=== PATIENT | female | born 1980 | race African-American/Black ===

== ENCOUNTER 2023-08-09 05:01 | Observation (INO) | payer SELFPAY ==
[2023-08-09] VITALS (10 sets, daily range): BP systolic 134–198; BP diastolic 73–94; PULSE 64–94; RESP 14–25; TEMP 36.3–38.3; O2SAT 97–100; BMI 42.7
--- NOTE | ~2023-08-09 | CT_ITS ---
EXAMINATION: CT brain wo con DATE: 08/09/2023 12:55 INDICATION: New onset of seizure TECHNIQUE: Computed tomography (CT) of the head was performed without intravenous contrast. The dose- length product was 605.33 mGy-cm. Automated exposure control and iterative reconstruction technique w ere employed. COMPARISON: None FINDINGS: Brain parenchymal volume is normal. No acute intracranial hemorrhage, infarction, mass or m ass effect. Study limited by motion. No ventriculomegaly or midline shift. No acute intracranial hemo rrhage, infarction, mass or mass effect. Midline sagittal images are unremarkable. Paranasal sinuses and mastoids are pneumatized. No depressed skull fractures. IMPRESSION: 1. No acute intracranial abnormality. Reviewed, dictated and finalized at location B. INE SET UP
--- NOTE | ~2023-08-09 | CT_ITS ---
CT of the Abdomen and Pelvis: Indication: Pancreatitis Technique: 2.5 mm axial scans were obtained through the abdomen and pelvis following intravenous adm inistration of 100 cc of Omnipaque 350. Dose reduction technique was used on this scan by utilizing a utomated exposure control and iterative reconstruction technique. The dose-length product (DLP) was 1 379.54 mGy-cm. Findings: Scans through the lung bases are unremarkable. The liver, spleen, pancreas, gallbladder, adrenals and kidneys are within normal limits. No evidence of aortic aneurysm. No lymphadenopathy. No bowel obstruction or bowel wall thickening. There is no evidence to suggest acute appendicitis. Images through the pelvis were performed. Urinary bladder unremarkable. No pelvic mass seen. No ascit es. Impression: No significant abnormalities seen. Reviewed, dictated and finalized at location . CIATE PROFESSOR OF GEOLOGY Impression: No significant abnormalities seen.
[2023-08-09 05:16] LABS: Basophils Percent Auto 0.4 % (0.2-1.2); Hematocrit 42.1 % (37.0-47.0); Hemoglobin 13.3 g/dL (12.0-15.0); Immature Granulocyte Absolute 0.03 K/mm3 (0.00-0.031); Immature Granulocyte Percent A 0.4 % (0-0.5); Lymphocytes Absolute Auto 1.53 K/mm3 (0.9-3.2); Lymphocytes Percent Auto 19.5 % (18.3-44.2); Mean Corpuscular HGB Conc 31.6 g/dl (32-36); Mean Corpuscular Hemoglobin 24.4 pg (26-34); Mean Corpuscular Volume 77.1 fl (80-100); Mean Platelet Volume 11.9 fl (7.4-10.4); Monocytes Absolute Auto 0.6 K/mm3 (0.1-0.6); Monocytes Percent Auto 7.4 % (2.6-8.5); Neutrophils Absolute Auto 5.7 K/mm3 (1.3-6.7); Neutrophils Percent Auto 72.3 % (45.5-73.1); Platelet Count Result 243 k/mm3 (150-375); Red Blood Count 5.46 M/mm3 (4.2-5.4); Red Cell Distribution Width 13.6 % (11.5-14.5); White Blood Count 7.9 K/mm3 (4.5-10.0)
[2023-08-09 05:30] LABS: Alanine Aminotransferase 20 U/L (6-35); Albumin Level 4.1 g/dL (3.5-5.1); Alkaline Phosphatase 79 U/L (38-126); Anion Gap 11 mmol/L (8-16); Aspartate Amino Transferase 18 U/L (14-36); Bilirubin,Total 0.7 mg/dL (0.2-1.3); Blood Urea Nitrogen 6 mg/dL (7-17); Calcium 9.6 mg/dL (8.4-10.2); Carbon Dioxide 25 mmol/L (22-30); Chloride 102 mmol/L (98-107); Estimated CRCL calculation 124 ml/min; Estimated Glomerular Filt Rate > 60; Glucose 366 mg/dL (65-110); Lipase 593 U/L (23-300); Potassium 3.5 mmol/L (3.4-5.0); Sodium 138 mmol/L (137-145)
--- NOTE | 2023-08-09 05:45 | PC.NURSE ---
Pt walked out into the hallway holding her IV bag and asked for pain medicine. This RN took pt back to room, pt disclosed that she needed to admit something. Pt then stated I've been dealing with a lot of stress, my sister in January, and I have been doing heroin since she passed This RN asked the pt if she was having thoughts of hurting herself and the pt replied I just want to be with my sister Pt also stated I want to , I want to made aware, suicide precautions put in place. Sitter at bedside.
--- NOTE | 2023-08-09 06:05 | ECG_ITS ---
Measurements Intervals [place] Rate: 68 P: 50 SC: 175 QRS: 17 QRSD: 86 T: 10 QT: 379 QTc: 405 Interpretive Statements SINUS RHYTHM NONSPECIFIC T-WAVE FLATTENING BORDERLINE ECG NO PREVIOUS ECG AVAILABLE FOR COMPARISON Electronically Signed On 08-09-2023 13:25:32 PERFORMANCE TEST ARCHITECT by Oscar Narvaez M.D.
[2023-08-09 06:16] LABS: Appearance Urine Cloudy (Clear); Bacteria Urine 3+ /hpf; Bilirubin Urine Negative (Negative); Blood Urine Negative (Negative); Budding Yeast Urine Present /hpf; Color Urine Yellow (Yellow); Glucose Urine UA 3+ mg/dL (Negative); Ketones Urine 1+ mg/dL (Negative); Leukocyte Esterase Ur 1+ LEU/UL (Negative); Need Manual Microscopic Reviewed; Nitrate Urine Negative (Negative); Non Pathogenic Casts 0-2; Protein Urine Negative (Negative); Specific Grav Ur 1.026 (1.001-1.035); Squamous Epithelial Cell Urine None seen /hpf (Few); WBC Urine 21-50 /hpf; pH Urine 6.5 (5.0-9.0)
[2023-08-09 06:17] LABS: Add Urine Microscopic? YES
[2023-08-09 06:36] LABS: Influenza A QL RT-PCR Negative (Negative); Influenza B QL RT-PCR Negative (Negative); RSV RNA, RT-PCR Negative (Negative); SARS-CoV-2 RNA PCR Negative (Negative)
--- NOTE | 2023-08-09 06:43 | PC.NURSE ---
Patient attempted to elope to catch air and get out of here . Patient stopped by this RN and security called. Patient informed that the physician will be in to speak with her soon. Assisted back into bed.
--- NOTE | 2023-08-09 07:06 | PC.NURSE ---
Patient attempting to elope. Security and tech redirecting patient back to room. Patient informed that if she eloped we would have to call [facility] and they would bring her back to our facility. Patient stated, fuck you and raised her middle finger to this RN.
[2023-08-09] MEDS: LACTATED RINGERS 1,000 ML 999 ML IV CONT (07:35)
[2023-08-09] MEDS: ONDANSETRON INJ 4 MG/2 ML VIAL IV PUSH (07:45)
--- NOTE | 2023-08-09 07:52 | PC.NURSE ---
Pt with current nausea/heaving, fluids infusing, gave meds per MAR. Pt complaining of abdominal and back pain, MD aware. animal tech made aware of IV fluids/tubing in room and infusing. Pt updated on POC. Pt reports feeling depressed and having suicidal thoughts since her sister in January of this year. States she has never seen a psychiatrist or been treated for depression in the past.
--- NOTE | 2023-08-09 08:09 | ED.ABDPAIN ---
HPI - Abdominal Pain General Chief Complaint: Psychiatric Symptoms Stated Complaint: abd pain, nausea, vomiting Time Seen by Provider: 08/09/23 07:01 History of Present Illness HPI narrative: Patient states around 3 this morning she started having severe epigastric abdominal pain that went to her back, and nausea and vomiting, she cannot stop throwing has not had symptoms like this before, does not drink alcohol, no chest pain. To me she denied SI/HI; however she had told someone that her sister yesterday and she planned on killing herself upon discharge. Related Data Allergies Allergy/AdvReac Type Severity Reaction Status Date / Time Penicillins Allergy Diarrhea Verified 08/09/23 05:06 Review of Systems Review of Systems: CONST: No fever. HEENT: No sore throat C/V: Chest pain RESP: No cough GI: Reports abdominal pain, nausea, vomiting : No dysuria. M/S: Muscle pain SKIN: No rash. NEURO: [Headache without focal numbness or weakness] PSYCH: Depression [facility] Social History Social History Substance use type: heroin Exam Narrative: EXAMINATION OF ORGAN SYSTEMS/BODY AREAS: Constitutional: Vital signs per nursing GENERAL: Moving around the bed, retching HEAD: Normal with no signs of head trauma. EYES: EOMI, conjunctiva normal ENT: Hearing grossly intact LUNGS: Nonlabored breathing. HEART: [Regular rate and rhythm], normal pulses bilaterally radial and DP ABD: [Soft], tender to palpation diffusely EXT: Normal range of motion SKIN: [No rashes or lesions.] NEURO: [Alert and oriented x 3. No gross focal sensory or strength deficits.] PSYCH: Flat affect Course Vital Signs Vital signs: Vital Signs Temperature 97.3 F L 08/09/23 04:57 Pulse Rate 64 08/09/23 04:57 Respiratory Rate 15 08/09/23 04:57 Blood Pressure 164/94 H 08/09/23 04:57 Pulse Oximetry 100 08/09/23 04:57 Oxygen Delivery Room Air 08/09/23 04:57 Temperature 97.7 F 08/09/23 06:21 Pulse Rate 71 08/09/23 06:21 Respiratory Rate 16 08/09/23 06:21 Blood Pressure 198/84 H 08/09/23 06:21 Pulse Oximetry 100 08/09/23 06:21 Oxygen Delivery Room Air 08/09/23 04:57 MDM - Abdominal Pain MDM Narrative Medical decision making narrative: The patient presents here for psychiatric evaluation due to verbal threats of suicide, she is also reporting severe abdominal pain, nausea vomiting since this morning, per overnight reports suspected heroin use, per patient she does use morphine for chronic back pain. On evaluation she is throwing up appears quite uncomfortable, I did order antiemetics and pain medication, labs concerning for UTI and elevated lipase, CT abdomen/pelvis and thus obtained which is thankfully normal. I did re-evaluate the patient, she is now describing pain everywhere, this makes me less suspicious for an acute surgical abnormality including dissection without focalized pain or neurovascular deficits, since she is still throwing up despite multiple rounds of antiemetics I am concerned for possible withdrawal, I do not think she is medically stable for transfer to psychiatric facility at this time. Discussed with hospitalist Dr Livingston for admission. Lab Data 08/09/23 05:08 08/09/23 05:08 Labs: Lab Results 08/09/23 08/09/23 Range/Units 05:08 05:51 WBC 7.9 (4.5-10.0) K/mm3 RBC 5.46 H (4.2-5.4) M/mm3 Hgb 13.3 (12.0-15.0) g/dL Hct 42.1 (37.0-47.0) % MCV 77.1 L (80-100) fl MCH 24.4 L (26-34) pg MCHC 31.6 L (32-36) g/dl RDW 13.6 (11.5-14.5) % Plt Count 243 (150-375) k/mm3 MPV 11.9 H (7.4-10.4) fl Immature Gran % (Auto) 0.4 (0-0.5) % Neut % (Auto) 72.3 (45.5-73.1) % Lymph % (Auto) 19.5 (18.3-44.2) % Rhea % (Auto) 7.4 (2.6-8.5) % Eos % (Auto) 0.0 (0-4.4) % Baso % (Auto) 0.4 (0.2-1.2) % Lymph # (Auto) 1.53 (0.9-3.2) K/mm3 Rhea # (Auto) 0.6 (0.1-0.6) K/mm3 Eos # (Auto) 0.0 (0
[2023-08-09] MEDS: MORPHINE SULFATE (*CRX) 4 MG/ML INJ IV PUSH (08:18)
[2023-08-09] MEDS: METOCLOPRAMIDE HCL INJ 10 MG/2 ML VIAL IV PUSH (08:20)
[2023-08-09] MEDS: diphenhydrAMINE HCl INJ 50 MG/ML VIAL 25 MG IV PUSH (08:20)
[2023-08-09 08:34] LABS: Amphetamine Screen Urine Negative (Negative); Barbiturate Screen Urine Negative (Negative); Benzodiazepines Screen Urine Negative (Negative); Cannabinoid Screen Urine Negative (Negative); Cocaine Screen Urine Negative (Negative); Methadone Screen Urine Negative (Negative); Opiate Screen Urine Negative (Negative); Phencyclidine Screen Urine Negative (Negative)
[2023-08-09 09:24] LABS: Acetaminophen < 10 ug/mL (10-30); Ethanol < 10 mg/dL (<10); Salicylate < 1.0 mg/dL (2-20)
[2023-08-09] MEDS: LORazepam INJ (*CRX) 2 MG/ML VIAL 1 MG IM (12:05)
--- NOTE | 2023-08-09 12:10 | PC.NURSE ---
RN called to bedside, pt appeared to be having seizure like activity with rhythmic movement and drooling, MD also called to bedside. Pt woke up and was alert and answering questions appropriately right away. VS as documented. Pt placed on cardiac care unit nurse and medicated. Pt's IV was found in the sink, new IV started.
[2023-08-09] MEDS: LACTATED RINGERS 1,000 ML 125 ML IV CONT ×2 (12:24→23:44)
[2023-08-09] MEDS: KETOROLAC 15 MG/ML VIAL (*BKC) IV PUSH (12:29)
[2023-08-09] MEDS: cloNIDine HCL 0.1 MG TABLET PO (12:30)
[2023-08-09 13:38] LABS: Hemoglobin A1C > 14.0 % (<5.7)
--- NOTE | 2023-08-09 14:57 | PM.IMHP ---
H&P: HPI History of Present Illness Date/Time: 08/09/23 14:57 Chief Complaint: Abdominal Pain, Suicidal Ideation Narrative: 43 y/o F presents here with epigastric pain, N/V, and SI with PMH of DM and heroin use. Patient reports that at 3:00 a.m. last night (08/09) she began experiencing epigastric pain accompanied by nausea and vomiting. States that she felt feverish. Reported to ED provider that the a epigastric pain radiated into her back. Not accompanied by chest pain or shortness of breath. No prior history of similar presentation. +Urinary frequency, dysuria, and odor. Denied hematuria. ED workup revealed UA suspicious for UTI, hyperglycemia, and elevated lipase. CT of abdomen/pelvis was unremarkable. During workup, family reported that patient had been making suicidal statements lately, most recent last night. Denied SI/HI to ED provider, did endorse to me that she had made those statements to her mother. No plan or access to firearms. Reports that these thoughts started after her sister unexpectedly in January. Complicated by current substance use. Patient reports that she snorts heroin a minimum of 2 times per week to a max of once daily. Last use 2 days ago. She reports interest in getting clean. Patient reports following with her PCP (Mira Bartlett in [facility]) for her diabetes. currently on Trulicity 1.5 once weekly. Reported compliance with last PCP visit a few months ago. no other complaints at this time. Review of Systems Review of Systems: All systems reviewed & are unremarkable except as noted in HPI and below PMFSH Past Medical History Medical History (Updated 08/09/23 @ 20:06 by Izabela Recinos APRN) DM2 (diabetes mellitus, type 2) Heroin use twice weekly - once daily, as of 08/09/23 Surgical History Surgical History (Updated 08/09/23 @ 18:26 by Izabela Recinos APRN) History of bilateral breast reduction surgery Family History Family History (Updated 08/09/23 @ 17:23 by Harmony Prieto RN) Other Unknown family medical history Social History Social History (Updated 08/09/23 @ 18:26 by Izabela Recinos APRN) Social History: Currently living with her niece. Elects Matilde Anaya, mother, as her surrogate decision maker. Code status: Full Code. Smoking status: Former smoker Alcohol intake: former Substance use: former Substance use type: heroin Lack of Transportation: No Lack of Food: Sometimes True Current Housing: Decline to Answer Concerned About Future Housing: Decline to Answer Difficulty Paying Gas/Electric Bills: Decline to Answer Difficulty Paying for Meds: Decline to Answer Currently Unemployed: Decline to Answer Education: Decline to Answer Difficulty w/ Childcare or Family Care: Decline to Answer Spiritual care concerns: No Meds Home Medications and Allergies Home Medications Medication Instructions Recorded Confirmed Type clonidine HCl 0.1 mg tablet 0.1 mg PO DAILY 08/09/23 08/09/23 History dulaglutide 3 mg/0.5 mL 3 mg subcut WEEKLY 08/09/23 08/09/23 History subcutaneous pen injector (Trulicity) Allergies Allergy/AdvReac Type Severity Reaction Status Date / Time Penicillins Allergy Diarrhea Verified 08/09/23 05:06 Vital Signs Vital Signs - 24 hr 08/09/23 04:57 08/09/23 06:21 08/09/23 09:50 Temperature 97.3 F L 97.7 F Pulse Rate 64 71 71 Respiratory Rate 15 16 16 Blood Pressure 164/94 H 198/84 H 169/81 H Pulse Oximetry 100 100 100 Oxygen Delivery Room Air 08/09/23 12:10 Temperature Pulse Rate 76 Respiratory Rate 14 Blood Pressure 134/73 Pulse Oximetry 99 Oxygen Delivery Exam Narrative: Resting in ED stretcher. Const: General: comfortable and no acute distress Other: Mild somnolence. HENMT: Face/Nose/Sinus: Normal nares present Mouth: Yes moist mucous membranes Eyes: General: appearance normal, both eyes and all related structures Sclera: sclerae norm
--- NOTE | 2023-08-09 16:07 | PC.NURSE ---
ALL BELONGINGS SENT WITH PT'S MOTHER, REINIER, PER PATIENT REQUEST Reinier: [phone]
--- NOTE | 2023-08-09 16:17 | ADMGEN ---
This patient, Sia Anaya, was admitted to Intensive Care Unit-4. Patient/family oriented to hospital policies and general routines including ID bracelet, bed and alarms, visiting hours, pain management, procedures, bathroom and other care routines, personal items, smoking policy, room service/diet, and visiting hours. Information on how to activate the Rapid Response Team has been discussed. Patient/Family are encouraged to report perceived risks to care and to ask questions if they do not understand what they are told or what they should do.
[2023-08-09] MEDS: INSULIN ASPART (*BKC) 100 UNITS/ML SUB-Q ×2 (17:05→20:29)
[2023-08-09 17:08] LABS: Glucose Point of Care 371 mg/dl (65-105)
[2023-08-09] MEDS: HALOPERIDOL LACTATE 5 MG/ML VIAL 2 MG IV PUSH (18:21)
[2023-08-09] MEDS: MORPHINE SULFATE (*CRX) 2 MG/ML INJ IV PUSH ×2 (18:22→23:44)
[2023-08-09 19:14] LABS: Base Excess ABG 0.5 mEq/l (+/-2.0); Fractional Inspired Oxygen 21 %; HCO3 ABG 23.2 mEq/l (22.0-26.0); Oxygen Content ABG 18.3 %vol (16.0-22.0); Oxygen Saturation ABG 96.4 % (95.0-100.0); Oxyhemoglobin 94.8 % THb (90.0-100.0); PCO2 ABG 31.7 mmHg (35.0-45.0); PO2 ABG 77.8 mmHg (80.0-100.0); Total Hemoglobin 13.7 g/dL (12.0-18.0); pH ABG 7.482 (7.350-7.450)
[2023-08-09 19:15] LABS: Device ROOM AIR; Modified Allen's Test Pass; Site Drawn LEFT RADIAL
[2023-08-09 19:31] LABS: Cholesterol 210 mg/dL (0-200); HDL Direct 41 mg/dL; Triglycerides 92 mg/dL (<150)
[2023-08-09 19:42] LABS: LDL Cholesterol Direct 127 mg/dL
[2023-08-09 20:27] LABS: Glucose Point of Care 269 mg/dl (65-105)
[2023-08-09] MEDS: HYDROcodone/acetaminophen (*CRX) 5-325 MG TABLET 1 TAB PO (20:48)
[2023-08-10] VITALS (14 sets, daily range): BP systolic 155–191; BP diastolic 76–97; PULSE 56–80; RESP 17–26; TEMP 36.5–36.9; O2SAT 98–100
--- NOTE | 2023-08-10 00:30 | PC.NURSE ---
This RN called to bedside by patient sitter. Patient will not open her eyes to verbal commands. Patient opens her eyes to deep pain and squeezed his RNs hands. Izabela LEIVA called to bedside to evaluate patient.
[2023-08-10] MEDS: ONDANSETRON INJ 4 MG/2 ML VIAL IV PUSH ×2 (00:43→17:30)
[2023-08-10] MEDS: diphenhydrAMINE HCl INJ 50 MG/ML VIAL 25 MG IV PUSH (01:15)
--- NOTE | 2023-08-10 01:15 | PC.NURSE ---
While attempting to give IVP benadryl, patient intentionally leaned over the siderail and spit on the floor.
[2023-08-10] MEDS: cloNIDine HCL 0.1 MG TABLET PO (03:58)
[2023-08-10] MEDS: LORazepam INJ (*CRX) 2 MG/ML VIAL 1 MG IV PUSH (04:00)
[2023-08-10 04:25] LABS: Basophils Percent Auto 0.2 % (0.2-1.2); Hematocrit 39.1 % (37.0-47.0); Hemoglobin 12.6 g/dL (12.0-15.0); Immature Granulocyte Absolute 0.02 K/mm3 (0.00-0.031); Immature Granulocyte Percent A 0.2 % (0-0.5); Lymphocytes Absolute Auto 1.22 K/mm3 (0.9-3.2); Mean Corpuscular HGB Conc 32.2 g/dl (32-36); Mean Corpuscular Hemoglobin 24.5 pg (26-34); Mean Corpuscular Volume 75.9 fl (80-100); Monocytes Absolute Auto 0.7 K/mm3 (0.1-0.6); Neutrophils Absolute Auto 8.2 K/mm3 (1.3-6.7); Neutrophils Percent Auto 80.6 % (45.5-73.1); Platelet Count Result 253 k/mm3 (150-375); Red Blood Count 5.15 M/mm3 (4.2-5.4); Red Cell Distribution Width 13.5 % (11.5-14.5); White Blood Count 10.2 K/mm3 (4.5-10.0)
[2023-08-10 04:37] LABS: Alanine Aminotransferase 16 U/L (6-35); Albumin Level 3.9 g/dL (3.5-5.1); Alkaline Phosphatase 70 U/L (38-126); Anion Gap 12 mmol/L (8-16); Aspartate Amino Transferase 18 U/L (14-36); Bilirubin,Total 0.7 mg/dL (0.2-1.3); Blood Urea Nitrogen 8 mg/dL (7-17); Calcium 9.2 mg/dL (8.4-10.2); Carbon Dioxide 21 mmol/L (22-30); Chloride 106 mmol/L (98-107); Estimated CRCL calculation 122 ml/min; Estimated Glomerular Filt Rate > 60; Glucose 329 mg/dL (65-110); Potassium 3.5 mmol/L (3.4-5.0); Sodium 139 mmol/L (137-145)
[2023-08-10] MEDS: METOPROLOL TARTRATE INJ 5 MG/5 ML VIAL IV PUSH (06:31)
[2023-08-10 07:37] LABS: Glucose Point of Care 330 mg/dl (65-105)
[2023-08-10] MEDS: ENOXAPARIN 40 MG/0.4 ML SYRINGE SUB-Q (09:04)
[2023-08-10] MEDS: INSULIN ASPART (*BKC) 100 UNITS/ML SUB-Q ×3 (09:04→17:02)
[2023-08-10] MEDS: LACTATED RINGERS 1,000 ML 125 ML IV CONT (09:07)
--- NOTE | 2023-08-10 10:14 | PM.IMPN ---
Progress Note: A&P Assessment and Plan (1) UTI (urinary tract infection): Code(s): N39.0 - Urinary tract infection, site not specified Status: Acute (2) Seizure-like activity: Code(s): R56.9 - Unspecified convulsions Status: Acute (3) DM2 (diabetes mellitus, type 2): Qualifiers: Diabetes mellitus complication status: with hyperglycemia Diabetes mellitus buttermaker helper insulin use: without buttermaker helper use Qualified Code(s): E11.65 - Type 2 diabetes mellitus with hyperglycemia Code(s): E11.9 - Type 2 diabetes mellitus without complications Status: Acute (4) Suicidal ideation: Code(s): R45.851 - Suicidal ideations Status: Acute (5) Abdominal pain: Qualifiers: Abdominal location: epigastric Qualified Code(s): R10.13 - Epigastric pain Code(s): R10.9 - Unspecified abdominal pain Status: Acute (6) Nausea & vomiting: Qualifiers: Vomiting type: unspecified Qualified Code(s): R11.2 - Nausea with vomiting, unspecified Code(s): R11.2 - Nausea with vomiting, unspecified Status: Acute Plan (1) Suicidal ideation: ?Code(s): R45.851 - Suicidal ideations ?Status:?Acute ?Assessment and Plan: Endorsing suicidal thoughts without definitive plan and no preparations (note writing, giving away personal belongings). no access to a firearm. Placed on safety precautions with sitter.? Currently complicated by longstanding heroin use, snorting.? Uses 2 times per week to once daily with last use 2 days ago.? Ativan ordered p.r.n. for agitation or if true seizure activity occurs. UDS negative. Salicylates and acetaminophen WNL. Patient is medically stable today, will request psych evaluation (2) DM2 (diabetes mellitus, type 2): ?Qualifiers: ?Diabetes mellitus complication status:?with hyperglycemia??Diabetes mellitus buttermaker helper insulin use:?without buttermaker helper use? Qualified Code(s):?E11.65 - Type 2 diabetes mellitus with hyperglycemia ?Code(s): E11.9 - Type 2 diabetes mellitus without complications ?Status:?Acute ?Assessment and Plan: hypoglycemia protocol, POC blood glucose ACHS, home medication resumed - Trulicity 1.5, may take home dose, correct regimen ordered - low dose TIDWM and HS, A1C updated - >14. consider consultation to teacher theater arts once abdominal pain and N/V resolved. (3) Abdominal pain: ?Qualifiers: ?Abdominal location:?epigastric? Qualified Code(s):?R10.13 - Epigastric pain ?Code(s): R10.9 - Unspecified abdominal pain ?Status:?Acute ?Assessment and Plan: CT Abd/Pelvis showed no significant abnormalities. Lab work significant for lipase 593, A1C >14, glucose of 366 (normal gap), and UA indicative of UTI. Initial c/w pancreatitis, lipase 593 viral PCR was negative for flu/COVID/RSV. adding lipid panel and ABG. (4) Nausea & vomiting: ?Qualifiers: ?Vomiting type:?unspecified? Qualified Code(s):?R11.2 - Nausea with vomiting, unspecified ?Code(s): R11.2 - Nausea with vomiting, unspecified ?Status:?Acute ?Assessment and Plan: Zofran as 1st line antiemetic, Haldol 2 mg IVP as second line, and Benadryl 25 mg IVP as 3rd line. start advanced liquid diet, and advance diet as tolerable (5) UTI (urinary tract infection): ?Code(s): N39.0 - Urinary tract infection, site not specified ?Status:?Acute ?Assessment and Plan: UA: cloudy,? 3+ glucose, 1+ ketones, 1+ leuk esterase, 3-5 RBC, 21-50 WBC, 3+ bacteria, yeast present, no epithelial cells. UC pending.? started on ceftriaxone on 08/09. Does not meet SIRS criteria. (6) Seizure-like activity: ?Code(s): R56.9 - Unspecified convulsions ?Status:?Acute ?Assessment and Plan: patient had 2 witnessed episodes of seizure-like activity while in ED. Neurology consulted. CT of head obtained and showed no acute abnormalities. ativan PRN ordered for seizures.
[2023-08-10 12:06] LABS: Glucose Point of Care 293 mg/dl (65-105)
[2023-08-10] MEDS: LOSARTAN POTASSIUM 50 MG TABLET PO (13:36)
--- NOTE | 2023-08-10 16:07 | PM.DS ---
DS: Admitting Diagnosis Discharge Date 08/10 Admitting Diagnosis (1) UTI (urinary tract infection): ?Code(s): N39.0 - Urinary tract infection, site not specified ?Status:?Acute (2) Seizure-like activity: ?Code(s): R56.9 - Unspecified convulsions ?Status:?Acute (3) DM2 (diabetes mellitus, type 2): ?Qualifiers: ?Diabetes mellitus complication status:?with hyperglycemia??Diabetes mellitus fdc insulin use:?without fdc use? Qualified Code(s):?E11.65 - Type 2 diabetes mellitus with hyperglycemia ?Code(s): E11.9 - Type 2 diabetes mellitus without complications ?Status:?Acute (4) Suicidal ideation: ?Code(s): R45.851 - Suicidal ideations ?Status:?Acute (5) Abdominal pain: ?Qualifiers: ?Abdominal location:?epigastric? Qualified Code(s):?R10.13 - Epigastric pain ?Code(s): R10.9 - Unspecified abdominal pain ?Status:?Acute (6) Nausea & vomiting: ?Qualifiers: ?Vomiting type:?unspecified? Qualified Code(s):?R11.2 - Nausea with vomiting, unspecified ?Code(s): R11.2 - Nausea with vomiting, unspecified ?Status:?Acute DS: Discharge Diagnosis Discharge Diagnosis (1) UTI (urinary tract infection): Code(s): N39.0 - Urinary tract infection, site not specified Status: Acute (2) Seizure-like activity: Code(s): R56.9 - Unspecified convulsions Status: Acute (3) DM2 (diabetes mellitus, type 2): Qualifiers: Diabetes mellitus complication status: with hyperglycemia Diabetes mellitus fdc insulin use: without fdc use Qualified Code(s): E11.65 - Type 2 diabetes mellitus with hyperglycemia Code(s): E11.9 - Type 2 diabetes mellitus without complications Status: Acute (4) Suicidal ideation: Code(s): R45.851 - Suicidal ideations Status: Acute (5) Abdominal pain: Qualifiers: Abdominal location: epigastric Qualified Code(s): R10.13 - Epigastric pain Code(s): R10.9 - Unspecified abdominal pain Status: Acute (6) Nausea & vomiting: Qualifiers: Vomiting type: unspecified Qualified Code(s): R11.2 - Nausea with vomiting, unspecified Code(s): R11.2 - Nausea with vomiting, unspecified Status: Acute DS: Summary Hospital Course Hospital Course: Per H&P, 43 y/o F presents here with epigastric pain, N/V, and SI with PMH of DM and heroin use. Patient reports that at 3:00 a.m. last night (08/09) she began experiencing epigastric pain accompanied by nausea and vomiting.? States that she felt feverish. ? Reported to ED provider that the a epigastric pain radiated into her back.? Not accompanied by chest pain or shortness of breath.? No prior history of similar presentation.? +Urinary frequency, dysuria, and odor. Denied hematuria. ED workup revealed UA suspicious for UTI, hyperglycemia, and elevated lipase. CT of abdomen/pelvis was unremarkable. During workup,? family reported that patient had been making suicidal statements lately, most recent last night.? Denied SI/HI to ED provider, did endorse to me that she had made those statements to her mother.? No plan or access to firearms. Reports that these thoughts started after her sister unexpectedly in January.? Complicated by current substance use.? Patient reports that she snorts heroin a minimum of 2 times per week to a max of once daily.? Last use 2 days ago.? She reports interest in getting clean. ? Patient reports following with her PCP (Miar Bartlett in [facility]) for her diabetes.? currently on Trulicity 1.5 once weekly.? Reported compliance with last PCP visit a few months ago. no other complaints at this time. The following medical issues have been addressed during hospitalization (1) Suicidal ideation: ?Code(s): R45.851 - Suicidal ideations ?Status:?Acute ?Assessment and Plan: Endorsing suicidal thoughts without definitive plan and no preparations (note writing,
--- NOTE | 2023-08-10 16:12 | WPDNEURCNPN ---
Assessment and Plan Assessment and plan (1) DM2 (diabetes mellitus, type 2): Qualifiers: Diabetes mellitus long-term insulin use: without long-term use Diabetes mellitus complication status: with hyperglycemia Qualified Code(s): E11.65 - Type 2 diabetes mellitus with hyperglycemia Code(s): E11.9 - Type 2 diabetes mellitus without complications Status: Acute (2) Suicidal ideation: Code(s): R45.851 - Suicidal ideations Status: Acute (3) Seizure-like activity: Code(s): R56.9 - Unspecified convulsions Status: Acute Plan nonfocal neurological examination with history of suicidal ideation in addition to history of underlying diabetes mellitus type 2 psychological counseling is planned and patient is being discharged to the services. Consult date: 08/10/23 HPI: Sia Anaya is a 43 year old female admitted to the hospital through the emergency room for the complaint of epigastric pain with nausea vomiting and past medical history of diabetes mellitus and heroin use she does have ongoing history of bilateral breast reduction surgery, being former smoker and alcohol intake her outpatient medications included clonidine 0.1mg daily initial vital signs were normal except blood pressure 164/94 general physical exam was normal neurological examination was nonfocal evaluation in the ER revealed normal CBC BMP UA except the glycosuria negative CT scan of the head PMFSH Past Medical History Medical History DM2 (diabetes mellitus, type 2) Heroin use twice weekly - once daily, as of 08/09/23 Surgical History Surgical History History of bilateral breast reduction surgery Family History Family History Other Unknown family medical history Social History Social History Social History: Currently living with her niece. Elects Matilde Anaya, mother, as her surrogate decision maker. Code status: Full Code. Smoking status: Former smoker Alcohol intake: former Substance use: former Substance use type: heroin Lack of Transportation: No Lack of Food: Sometimes True Current Housing: Decline to Answer Concerned About Future Housing: Decline to Answer Difficulty Paying Gas/Electric Bills: Decline to Answer Difficulty Paying for Meds: Decline to Answer Currently Unemployed: Decline to Answer Education: Decline to Answer Difficulty w/ Childcare or Family Care: Decline to Answer Spiritual care concerns: No Meds Home Medications and Allergies Home Medications Medication Instructions Recorded Confirmed Type clonidine HCl 0.1 mg tablet 0.1 mg PO DAILY 08/09/23 08/09/23 History dulaglutide 3 mg/0.5 mL 3 mg subcut WEEKLY 08/09/23 08/09/23 History subcutaneous pen injector (Trulicity) Allergies Allergy/AdvReac Type Severity Reaction Status Date / Time Penicillins Allergy Diarrhea Verified 08/09/23 05:06 Vital Signs Vital Signs - 24 hr 08/09/23 18:00 08/09/23 16:17 08/09/23 20:00 Temperature 38.3 C H Pulse Rate 76 80 Respiratory Rate 19 Blood Pressure 160/81 H Pulse Oximetry 97 Oxygen Delivery Room Air 08/09/23 19:00 08/09/23 20:00 08/09/23 23:37 Temperature 36.7 C 36.9 C Pulse Rate 71 85 Respiratory Rate 21 H 25 H Blood Pressure 155/81 H 165/83 H Pulse Oximetry 98 97 100 Oxygen Delivery Room Air 08/09/23 20:00 08/10/23 00:00 08/09/23 22:00 Temperature Pulse Rate 94 81 Respiratory Rate Blood Pressure Pulse Oximetry Oxygen Delivery Room Air 08/10/23 00:00 08/10/23 03:47 08/10/23 04:00 Temperature 36.5 C Pulse Rate 79 68 Respiratory Rate 17 Blood Pressure 191/93 H Pulse Oximetry 98 Oxygen Delivery Room Air 08/10/23 02:00 08/10/23 04:00 08/10/23 06:00 Temperature Pul
[2023-08-10 16:43] LABS: Glucose Point of Care 297 mg/dl (65-105)
== END 2023-08-10 17:50 | disposition home or self-care (01) ==
LOC: ANHED 09:24 → ANHICU 08-10 16:06 → ANHIMU 08-12 15:15
PROVIDERS: Emergency Medicine; Student in an Organized Health Care Education/Training Program; Admitting Provider Student in an Organized Health Care Education/Training Program; Emergency Provider Emergency Medicine; Visit Provider Hospitalist
DX: R45.851 Suicidal ideations (principal); N39.0 Urinary tract infection, site not specified; E11.65 Type 2 diabetes mellitus with hyperglycemia; R56.9 Unspecified convulsions; R10.13 Epigastric pain; R11.2 Nausea with vomiting, unspecified; R74.8 Abnormal levels of other serum enzymes; Z20.822 Contact with and (suspected) exposure to COVID-19; R94.31 Abnormal electrocardiogram [ECG] [EKG]; F11.10 Opioid abuse, uncomplicated; Z87.891 Personal history of nicotine dependence; Z79.85 Long-term (current) use of injectable non-insulin antidiabetic drugs; Z79.899 Other long term (current) drug therapy
CPT/HCPCS: 36415; 36600; 70450; 74177; 80053; 80061; 80307; 81001; 81025; 82805; 82948; 83036; 83690; 85025; 87086; 87088; 87637; 93005; 96365; 96366; 96372; 96375; 96376; 99285; A9270; G0378; J0696; J1200; J1630; J1650; J1815; J1885; J2060; J2270; J2405; J2765; J7120; Q9967